=== PATIENT | male | born 1990 | race Caucasian/White ===

== ENCOUNTER 2018-11-16 17:09 | Emergency (ER) | payer OTHER ==
[~2018-11-16] VITALS: Ht 180.3 cm; Wt 83.9 kg
[2018-11-16 17:41] VITALS: BP 139/90
[2018-11-16] MEDS ORDERED: ACETAMINOPHEN ES 500 MG TABLET ONE (18:00)
[2018-11-16] MEDS ORDERED: ACETAMINOPHEN 325 MG TABLET PO ONE (18:00)
--- NOTE | 2018-11-16 19:10 | NUR ---
REPORT GIVEN TO KATRIN BARBA FOR BELINDA.
--- NOTE | 2018-11-16 19:16 | NUR ---
Patient discharged to home in stable condition. Written and verbal after care instructions given. Patient verbalizes understanding of instruction. Pt ambulatory with a steady gait
== END 2018-11-16 19:15 | disposition home or self-care (01) ==
LOC: ER 17:11
DX: S50.02XA Contusion of left elbow, initial encounter (principal); W01.0XXA Fall on same level from slipping, tripping and stumbling without subsequent striking against object, initial encounter; Y93.89 Activity, other specified; Y92.89 Other specified places as the place of occurrence of the external cause; Y99.8 Other external cause status
CPT/HCPCS: 73080-TC